=== PATIENT | female | born 1970 | race Caucasian/White ===

== ENCOUNTER → 2017-03-17 | Outpatient (CLI) | payer OTHER | LOC: FIMAGING 07:29 | PROVIDERS: ATTEND Obstetrics & Gynecology Gynecology | DX: Z12.31 Encounter for screening mammogram for malignant neoplasm of breast (principal) | CPT/HCPCS: G0202 ==

== ENCOUNTER 2017-07-19 08:08 | Emergency (ER) | payer OTHER ==
--- NOTE | 2017-07-19 08:24 | CPEKG ---
Heart Rate: 69 RR Interval: 870 P-R Interval: 136 QRSD Interval: 134 QT Interval: 416 QTC Interval: 446 P [place]: 53 QRS [place]: -34 T Wave [place]: 102 EKG Severity - ABNORMAL ECG - EKG Impression: SINUS RHYTHM EKG Impression: LEFT BUNDLE BRANCH BLOCK Electronically Signed By: Quyen Zuluaga 19-Jul-2017 15:45:46
[2017-07-19] MEDS ORDERED: ONDANSETRON 4 MG/2 ML VIAL ONE (08:30)
[2017-07-19] MEDS ORDERED: ONDANSETRON 4 MG/2 ML VIAL IVP ONE (08:35)
--- NOTE | 2017-07-19 08:44 | EDPHY ---
H & P Time Seen by Provider: 07/19/17 08:32 HPI/ROS: CHIEF COMPLAINT: Left upper back pain HISTORY OF PRESENT ILLNESS: 46-year-old female presents with left upper back pain. Onset of severe left-sided back pain this morning. The pain waxes and wanes and is located underneath her left scapula. The pain radiates to her left upper extremity and left side of the neck. No anterior chest pain, shortness of breath, abdominal or flank pain. No prior similar symptoms. No recent injury or illness. No recent prolonged travel and no family history of clotting disorder. Cardiac risk factors negative. Nonsmoker; no family history; no hypertension, diabetes or hypercholesterolemia. REVIEW OF SYSTEMS: Constitutional: No fever, no chills Eyes: No visual changes ENT: No sore throat Respiratory: No cough, no shortness of breath Cardiac: No chest pain Gastrointestinal: No nausea, no vomiting, no abdominal pain Genitourinary: No hematuria, no dysuria Musculoskeletal: No leg pain or swelling Skin: No rash Neurological: No headache, no weakness Psychiatric: No depression Past Medical/Surgical History: Left bundle branch block on EKG Social History: Smoking Status: Never smoked Physical Exam: General Appearance: Alert, pleasant, appears in pain Eyes: Pupils equal and round, no conjunctival pallor or injection ENT, Mouth: Mucous membranes moist Neck: Normal inspection, no tenderness, range of motion without pain Respiratory: Lungs are clear to auscultation Cardiovascular: Regular rate and rhythm Gastrointestinal: Abdomen is soft and nontender Back: Normal inspection, no tenderness Neurological: A&O, nonfocal, normal gait Skin: Warm and dry Extremities: Nontender, no pedal edema; left upper extremity-normal inspection , no tenderness, no pain with range of motion Psychiatric: Mood and affect normal Constitutional: Initial Vital Signs Temperature (C) 36.5 C 07/19/17 08:09 Heart Rate 86 07/19/17 08:09 Respiratory Rate 17 07/19/17 08:09 Blood Pressure 115/90 H 07/19/17 08:09 O2 Sat (%) 99 07/19/17 08:09 O2 Delivery Mode Room Air Allergies/Adverse Reactions: latex [Latex] Allergy (Verified 07/19/17 08:09) Home Medications: Medication Instructions Recorded Control Pills 11/11/11 Medical Decision Making - Diagnostics EKG Interpretation: EKG interpreted by me reveals normal sinus rhythm, rate 69, left bundle branch block. Imaging Results: Imaging Impressions Chest X-Ray 07/19/17 08:35 Impression: Clear lungs. No acute process. ED Course/Re-evaluation: This patient presents with severe left upper back pain, with normal vital signs and normal physical exam. Stat EKG reveals left bundle branch block, no dysrhythmia or ischemic changes. Stat chest x-ray ordered. Morphine 6 mg IV and Zofran 4 mg IV given for pain control, as she is in quite a bit of pain. Doubt pulmonary embolism as PERC rule is negative, and low risk for PE per Well' s criteria. Abdomen is soft and nontender and I do not suspect referred pain from an intra-abdominal process. Ureteral calculus considered, though the pain is much higher than I would expect. 9:00 a.m.-chest x-ray reviewed by me reveals no acute disease. Patient feels better after IV medications. 9:30 a.m.-pain is returning. Laboratories studies were reviewed and are unremarkable, including D-dimer. Toradol 15 mg IV given. 10:30 a.m.-pain has resolved after Toradol. Feels completely back to normal. Unclear etiology of pain. Warning signs discussed. Safe and stable for discharge home. Differential Diagnosis: Differential diagnosis includes though it is not limited to pneumonia, pneumothorax, pulmonary embolism, aortic dissection, pericarditis, acute coronary syndrome. - Data Points Laboratory Results: Laboratory Results 07/19/17 08:25 07/19/17 08:25 07/19/17 07/19/17 07/19/17 08:25 08:25 08:25 WBC RBC Hgb Hct MCV MCH MCHC RDW Plt Count MPV Neut % (Auto) Lymph % (Auto) [place] % (Auto) Eos % (Auto) Baso % (Auto) Nucleat RBC Rel Count Absolute Neuts (auto) Absolute Lymphs (auto) Absolute Monos (auto) Absolute Eos (auto) Absolute Basos (auto) Absolute Nucleated RBC Immature Gran % Immature Gran # D-Dimer < 0.27 ug/mLFEU ug/mLFEU (0.00-0.50) Sodium Potassium Chloride Carbon Dioxide Anion Gap BUN Creatinine Estimated GFR Glucose Calcium Total Bilirubin 0.9 mg/dL mg/dL (0.1-1.4) Conjugated Bilirubin 0.4 mg/dL mg/dL (0.0-0.5) Unconjugated Bilirubin 0.5 mg/dL mg/dL (0.0-1.1) AST 21 IU/L IU/L (14-46) ALT 29 IU/L IU/L (9-52) Alkaline Phosphatase 62 IU/L IU/L (38-126) Troponin I Total Protein 7.6 g/dL g/dL (6.3-8.2) Albumin 4.2 g/dL g/dL (3.5-5.0) Beta HCG, Qual NEGATIVE 07/19/17 07/19/17 08:25 08:25 WBC 3.84 10^3/uL 10^3/uL (3.80-9.50) RBC 5.64 10^6/uL H 10^6/uL (4.18-5.33) Hgb 17.6 g/dL H g/dL (12.6-16.3) Hct 52.5 % H % (38.0-47.0) MCV 93.1 fL fL (81.5-99.8) MCH 31.2 pg pg (27.9-34.1) MCHC 33.5 g/dL g/dL (32.4-36.7) RDW 12.8 % % (11.5-15.2) Plt Count 177 10^3/uL 10^3/uL (150-400) MPV 10.0 fL fL (8.7-11.7) Neut % (Auto) 65.7 % % (39.3-74.2) Lymph % (Auto) 25.3 % % (15.0-45.0) [place] % (Auto) 4.4 % L % (4.5-13.0) Eos % (Auto) 3.1 % % (0.6-7.6) Baso % (Auto) 1.0 % % (0.3-1.7) Nucleat RBC Rel Count 0.0 % % (0.0-0.2) Absolute Neuts (auto) 2.52 10^3/uL 10^3/uL (1.70-6.50) Absolute Lymphs (auto) 0.97 10^3/uL L 10^3/uL (1.00-3.00) Absolute Monos (auto) 0.17 10^3/uL L 10^3/uL (0.30-0.80) Absolute Eos (auto) 0.12 10^3/uL 10^3/uL (0.03-0.40) Absolute Basos (auto) 0.04 10^3/uL 10^3/uL (0.02-0.10) Absolute Nucleated RBC 0.00 10^3/uL 10^3/uL (0-0.01) Immature Gran % 0.5 % % (0.0-1.1) Immature Gran # 0.02 10^3/uL 10^3/uL (0.00-0.10) D-Dimer Sodium 140 mEq/L mEq/L (135-145) Potassium 4.0 mEq/L mEq/L (3.5-5.2) Chloride 104 mEq/L mEq/L (97-110) Carbon Dioxide 24 mEq/l mEq/l (22-31) Anion Gap 12 mEq/L mEq/L (8-16) BUN 11 mg/dL mg/dL (7-23) Creatinine 1.0 mg/dL mg/dL (0.6-1.0) Estimated GFR > 60 Glucose 72 mg/dL mg/dL (70-100) Calcium 9.8 mg/dL mg/dL (8.5-10.4) Total Bilirubin Conjugated Bilirubin Unconjugated Bilirubin AST ALT Alkaline Phosphatase Troponin I < 0.012 ng/mL ng/mL (0.000-0.034) Total Protein Albumin Beta HCG, Qual Medications Given: Discontinued Medications Ketorolac Tromethamine (Toradol) 15 mg IVP EDNOW ONE Stop: 07/19/17 09:32 Last Admin: 07/19/17 09:33 Dose: 15 mg Morphine Sulfate (Morphine) 4 mg IVP EDNOW ONE Stop: 07/19/17 08:36 Last Admin: 07/19/17 08:37 Dose: 4 mg Ondansetron HCl (Zofran) 4 mg IVP EDNOW ONE Stop: 07/19/17 08:36 Last Admin: 07/19/17 08:36 Dose: 4 mg Departure - Departure Disposition: Home, Routine, Self-Care Clinical Impression: Back pain Qualifiers: Back pain location: thoracic back pain Chronicity: acute Back pain laterality: left Qualified Code(s): M54.6 - Pain in thoracic spine Condition: Good Instructions: Back Pain (ED) Additional Instructions: Ibuprofen 600 mg 3 times daily while the pain persists. Evaluation today is normal. Return for worsening symptoms or any concerns. Referrals: Bucky Jurado MD [Primary Care Provider] - As per Instructions
[2017-07-19 09:01] LABS: PLATELET COUNT 177 10^3/uL (150-400)
[2017-07-19 09:24] VITALS: O2SAT 97
[2017-07-19] MEDS ORDERED: KETOROLAC 30 MG/1 ML SDV ONE (09:30)
[2017-07-19] MEDS ORDERED: KETOROLAC 15 MG/1 ML SDV IVP ONE (09:31)
[2017-07-19 11:03] VITALS: RESP 16
[2017-07-19 11:25] VITALS: BP 112/70; PULSE 70; TEMP 98.2
== END 2017-07-19 11:24 | disposition home or self-care (01) ==
DX: M54.6 Pain in thoracic spine (principal); Z91.040 Latex allergy status
CPT/HCPCS: 96374; J1885; J2270; J2405

== ENCOUNTER → 2018-03-26 | Outpatient (CLI) | payer OTHER | LOC: FIMAGING 07:47 | PROVIDERS: ATTEND Obstetrics & Gynecology Gynecology | DX: Z12.31 Encounter for screening mammogram for malignant neoplasm of breast (principal); Z80.3 Family history of malignant neoplasm of breast ==